=== PATIENT | female | born 1965 | race Caucasian/White ===

== ENCOUNTER 2023-04-04 05:53 | Observation (INO) ==
[~2023-04-04 05:53] MED LIST: Chlorhexidine MOUTHWASH 0.12% 15 ML UDC ONE
[2023-04-04] MEDS ORDERED: Lactated Ringers 1000 ml BAG 1,000 ML IV SCH ×2 (06:00→12:00)
[2023-04-04] MEDS ORDERED: Buffered Lidocaine 1% SYRIN 1 ml INTRADERM ONE (06:00)
[2023-04-04] MEDS ORDERED: Rocuronium 50 mg VIAL 10 mg/ml 5 ml VIAL (50 mg) ONE ×2 (06:33→09:29)
[2023-04-04] MEDS ORDERED: Midazolam 2 mg/2 ml VIAL 1 mg/ml 2 ml VIAL (2 mg) ONE (06:33)
[2023-04-04] MEDS ORDERED: fentaNYL 100 mcg/2 ml 50 MCG/ML VIAL ONE (06:33)
[2023-04-04] MEDS ORDERED: Propofol 10 MG/ML 20 ML BTL ONE (06:33)
[2023-04-04] MEDS ORDERED: Lidocaine 2% PF 5 ML VIAL ONE (06:33)
[2023-04-04] MEDS ORDERED: ceFAZolin 2 GM in NS PREMIX 0 GM/0 ML BAG IVPB ONE (06:42)
[2023-04-04] MEDS ORDERED: ceFAZolin 2 GM in NS PREMIX 2 GM/100 ML BAG IVPB ONE (06:53)
[2023-04-04 07:04] LABS: Rapid COVID-19 Molecular Undetected (Undetected)
[2023-04-04] MEDS ORDERED: Lidocaine 1% w EPI 1:200,000 SDV 30 ML VIAL ONE (07:04)
[2023-04-04] MEDS ORDERED: Gelfoam Sponge SIZE 100 SPONGE ONE (07:05)
[2023-04-04] MEDS ORDERED: Thrombin 5,000 UNITS 1 APPLIC KIT - topical use - TOPICAL ONE (07:05)
[2023-04-04] MEDS ORDERED: ceFAZolin VIAL VIAL ONE (07:05)
[2023-04-04] MEDS ORDERED: Labetalol IV 5 MG/ML 20 ml VIAL ONE (07:14)
[2023-04-04] MEDS ORDERED: Levalbuterol HFA INHALER MDI ONE (08:28)
[2023-04-04] MEDS ORDERED: Ondansetron 4 mg VIAL 2 MG/ML 2 ml VIAL ONE (08:40)
[2023-04-04] MEDS ORDERED: Dexamethasone IV 4 MG/ML VIAL 1 ml VIAL ONE (08:40)
[2023-04-04] MEDS ORDERED: Phenylephrine 40 mcg/mL 10mL (400mcg) SYRINGE ONE (08:41)
[2023-04-04] MEDS ORDERED: Acetaminophen IV 1 GM/100ML 1,000 MG/100 ML BAG IV ONE (08:47)
[2023-04-04] MEDS ORDERED: Ketamine HCL 50 mg/ml 10 ml VIAL (500 MG) ONE (08:54)
[2023-04-04] MEDS ORDERED: Naloxone 0.4 mg VIAL 0.4 mg/ml 1 ml VIAL IV PRN (10:19)
[2023-04-04] MEDS ORDERED: HYDROmorphone 1 MG/1 ML SYRINGE IV PRN (10:19)
[2023-04-04] MEDS ORDERED: HYDROmorphone 0.5 MG/0.5 ML SYRINGE ONE (10:40)
[2023-04-04] MEDS ORDERED: Senna TAB 8.6 mg TAB PO PRN (11:12)
[2023-04-04] MEDS ORDERED: HYDROcodone/ACETAMIN 5/325 mg TAB PO PRN (11:12)
[2023-04-04] MEDS ORDERED: Morphine 2 MG/ML SYRINGE IV PRN (11:12)
[2023-04-04] MEDS ORDERED: Calcium Carb (TUMS) 500 mg CHEW TAB PO PRN (11:12)
[2023-04-04] MEDS ORDERED: Ondansetron 4 mg VIAL 2 MG/ML 2 ml VIAL IV PRN (11:12)
[2023-04-04] MEDS ORDERED: Insulin GLARGINE 100 un/ml 10 ml VIAL SUBCUT SCH (21:00)
[2023-04-04] MEDS: HYDROcodone/ACETAMIN 5/325 mg TAB PO PRN (22:14)
[2023-04-05] MEDS: HYDROcodone/ACETAMIN 5/325 mg TAB PO PRN ×3 (06:04→21:04)
[2023-04-05] MEDS ORDERED: Insulin GLARGINE 100 un/ml 10 ml VIAL SUBCUT SCH (22:00)
[2023-04-06] MEDS: HYDROcodone/ACETAMIN 5/325 mg TAB PO PRN ×2 (02:54→07:26)
[2023-04-06 10:30] VITALS: BP 126/83
== END 2023-04-06 11:50 | disposition home or self-care (01) ==
LOC: SSU 05:53 → OR 05:53 → OBSVTOIN 12:49 → INTOOBSV 04-05 07:42 → SSU 04-05 07:42
PROVIDERS: ADMIT Physician Assistant; ATTEND Neurological Surgery